=== PATIENT | male | born 1990 | race Caucasian/White ===

== ENCOUNTER → 2018-02-17 | Emergency (ER) | payer OTHER ==
[~2018-02-17] VITALS: Ht 177.8 cm; Wt 115.7 kg
== END | disposition left against medical advice (07) ==
LOC: ER 19:57
DX: M54.5 Low back pain (principal)

== ENCOUNTER 2018-02-18 13:39 | Emergency (ER) | payer OTHER ==
[~2018-02-18] VITALS: Ht 177.8 cm; Wt 117.9 kg
== END 2018-02-18 15:15 | disposition home or self-care (01) ==
LOC: ER 13:39
DX: M54.5 Low back pain (principal)